=== PATIENT | male | born 1990 | race Caucasian/White ===

== ENCOUNTER 2022-11-06 14:20 | Emergency (ER) | payer SELFPAY ==
--- NOTE | ~2022-11-06 | XR_ITS ---
EXAM: XR finger 3rd RT min 2V DATE: 11/06/2022 15:29 HISTORY: laceration/injury TO DORSAL AREA OF 3RD DIGIT . COMPARISON: None available. FINDINGS: Normal mineralization. No fracture or dislocation. No lytic or blastic lesion. Joint space s are maintained. No erosion or periosteal change. Soft tissues within normal limits. IMPRESSION: No acute osseous finding in the right third digit. Reviewed, dictated and finalized at location K.
[2022-11-06 14:57] VITALS: BP 132/87; PULSE 92; RESP 18; TEMP 36.6; O2SAT 99
--- NOTE | 2022-11-06 16:52 | ED.WOUNDLAC ---
HPI - Wound/Laceration General Chief Complaint: Wound/Laceration Stated Complaint: laceration to right 3rd digit Time Seen by Provider: 11/06/22 15:53 History of Present Illness HPI narrative: 32-year-old male reports for evaluation for a laceration to his right third finger that occurred just prior to arrival. Patient states he was working on his car when the sandie accidentally slipped and cut the dorsum of his right third finger. He denies paresthesias, limitations with range of motion, fever. Denies other injuries acquired. Bleeding controlled. Last tetanus was in 2020 per patient. Related Data Allergies Allergy/AdvReac Type Severity Reaction Status Date / Time No Known Allergies Allergy Unverified 10/09/22 13:57 Review of Systems Review of Systems: CONSTITUTIONAL: Denies fever, chills EYES: Denies visual changes, redness, or discharge. ENT: Denies rhinorrhea, congestion, sore throat, or otalgia. CARDIOVASCULAR: Denies chest pain, palpitations, or edema. RESPIRATORY: Denies cough or dyspnea. GASTROINTESTINAL: Denies abdominal pain, nausea, vomiting, or diarrhea. GENITOURINARY: Denies dysuria or hematuria. SKIN: See HPI MUSCULOSKELETAL: Denies back pain, joint pain, or myalgia. NEUROLOGIC: Denies headache, numbness, dizziness, or weakness. PSYCHIATRIC: Denies anxiety or depression. [facility] Social History Social History Smoking packs per day: 0.5 Smoking cigarettes per day: 10.0 Years smoked: 10 Smoking pack-years: 5.00 Smoking status: Current every day smoker Tobacco type: cigarettes Alcohol use details: occasional social use Substance use type: marijuana Lack of Transportation: No Lack of Food: Never True Current Housing: I Have Housing Concerned About Future Housing: No Difficulty Paying Gas/Electric Bills: No Difficulty Paying for Meds: No Currently Unemployed: No Education: Associate Degree Difficulty w/ Childcare or Family Care: No Exam Narrative: GENERAL: Well-appearing, in no acute distress. HEAD: Normocephalic NECK: Supple. CHEST: No respiratory distress. Clear to auscultation, no adventitious breath sounds. HEART: Regular rate and rhythm. No murmur heard. Normal peripheral pulses. EXTREMITIES: Normal range of motion. No edema. SKIN: 4cm laceration to the dorsum of the right 3rd finger over the proximal phalanx and middle phalanx. Part of the extensor tendon is visualized and intact, no compromise of tendon. Bleeding controlled. Full flexion and extension of 3rd digit. Cap refill <2. Sensation intact. NEURO: No focal deficits. Alert and oriented x3. PSYCH: Normal mood and affect. Course Vital Signs Vital signs: Vital Signs Temperature 97.9 F 11/06/22 14:57 Pulse Rate 92 11/06/22 14:57 Respiratory Rate 18 11/06/22 14:57 Blood Pressure 132/87 11/06/22 14:57 Pulse Oximetry 99 11/06/22 14:57 Oxygen Delivery Room Air 11/06/22 14:57 Temperature 97.9 F 11/06/22 14:57 Pulse Rate 92 11/06/22 14:57 Respiratory Rate 18 11/06/22 14:57 Blood Pressure 132/87 11/06/22 14:57 Pulse Oximetry 99 11/06/22 14:57 Oxygen Delivery Room Air 11/06/22 14:57 Procedures Laceration Laceration 1: Date: 11/06/22 Time: 18:28 Site: upper extremity Side (If applicable): right Size (cm): 4 Description: irregular Depth: simple, single layer and involves muscle layer Local Anesthetic: lidocaine 1% Amount of anesthesia used (mL): 4 Pre-repair: wound explored, irrigated and irrigated extensively ====== Skin Level ====== Skin layer closed with: nylon Size (cm): 5-0 Number of sutures: 6 Technique: simple, interrupted ====== Subcutaneous Layer ====== ====== Muscle Layer ====== ====== Tendon Layer ====== MDM - Wound/Laceration MDM Narrative Medical decision making n
[2022-11-06] MEDS: LIDOCAINE HCL 1% LOCAL INJ 10 ML VIAL INFILTRATE (17:45)
[2022-11-06] MEDS: CEPHALEXIN 500 MG CAPSULE PO (18:49)
== END 2022-11-06 18:51 | disposition home or self-care (01) ==
PROVIDERS: Emergency Provider Physician Assistant; PCP Family Medicine Adolescent Medicine
DX: S61.212A Laceration without foreign body of right middle finger without damage to nail, initial encounter (principal); F17.210 Nicotine dependence, cigarettes, uncomplicated; W26.8XXA Contact with other sharp object(s), not elsewhere classified, initial encounter
CPT/HCPCS: 12002; 73140; 99283; A9270